=== PATIENT | female | born 1995 | race Caucasian/White ===

== ENCOUNTER 2024-06-10 17:13 | Emergency (ER) | payer OTHER, SELFPAY ==
[2024-06-10 17:26] VITALS: BP 113/60; BMI 18.6
[2024-06-10] MEDS: NSS 1000 IV (17:30)
[2024-06-10 17:40] LABS: % Basophils 0.1 % (0-2); % Immature Granulocytes 0.4 % (0-0.5); % Lymphocytes 7.5 % (20.5-51.1); % Monocytes 4.1 % (1.7-9.3); % Neutrophils 87.9 % (42.2-75.2); Absolute Immature Granulocytes 0.1 10^3/uL (0-0.05); Absolute Lymphocytes 1.1 10^3/uL (1.2-3.4); Absolute Monocytes 0.6 10^3/uL (0.1-0.6); Absolute Neutrophils 13.4 10^3/uL (1.4-6.5); Hemoglobin 15.7 g/dL (12.0-16.0); Mean Corp Hgb Conc. 36.5 g/dL (33.0-37.0); Mean Corpuscular Hgb 30.7 pg (27.0-31.0); Mean Platelet Volume 10.1 fL (7.4-10.4); Nucleated Red Blood Cells % 0 %; Platelet Count 325 10^3/uL (130-400); Red Blood Cell Count 5.12 10^6/uL (4.20-5.40); Red Cell Dist. Width 11.7 % (11.5-14.5); White Blood Cell Count 15.3 10^3/uL (4.8-10.8)
[2024-06-10] MEDS: ATIVAN 1 MG IV ×2 (17:48→18:58)
[2024-06-10] MEDS: ZOFRAN 4 MG IV (17:49)
[2024-06-10 18:00] VITALS: BP 104/65
[2024-06-10 18:03] LABS: Alcohol None Detected; Blood Urea Nitrogen 29 mg/dl (7-17); Calcium 10.3 mg/dl (8.4-10.2); Carbon Dioxide 29 mmol/L (22-30); Chloride 97 mmol/L (98-107); Estimated Creatinine Clearance 77 ml/min; Glucose 138 mg/dl (70-99); Sodium 142 mmol/L (135-145); eGFR > 60.00
--- NOTE | 2024-06-10 18:38 | ED.GENMED ---
History of Present Illness
General
Chief Complaint: Withdrawal Symptoms
Time Seen by Provider: 06/10/24 17:16
History of Present Illness
History of Present Illness:
28-year-old female presents to the emergency department for evaluation of syncopal event that occurred while being interviewed at [facility]. She arrived 2 days ago and was being evaluated in the [facility] when she had
multiple reported syncopal events. Patient admits to frequent outpatient meth, fentanyl, cocaine, and methadone use, last fentanyl use was yesterday and last methadone use was 2 days ago. She reports nausea vomiting and fatigue
Review of Systems
Review of Systems
Allergies reviewed?: Yes
All Other Systems: ROS reviewed and negative except as documented in HPI and ROS
Phy Exam
Physical Exam
Physical Exam:
GEN: Ill-appearing, disheveled
HEENT: Oral mucosa moist, no scleral icterus
Cardiac: Regular rateAnd rhythm, no murmur
Lung: No respiratory distress, no tachypnea
MSK: No gross deformity or injuries
Skin: Good color, no pallor or jaundice, no rashes
Neuro: AO x3, moves all extremities freely
Psych: Calm, cooperative
Course
Orders/Labs/Results
Orders:
Orders
06/10/24 17:24
EKG [Electrocardiogram (*1)] Urgent
Reason for Study: QTc Monitoring
EKG- Treatment ONCE
Test Result ONCE
06/10/24 17:25
0.9% Sodium Chloride 1000 ml [Nss] 1,000 ml IV BOLUS
Lorazepam [Ativan] 1 mg IV NOW STA
Ondansetron Injectable [Zofran] 4 mg IV NOW STA
06/10/24 17:28
Alcohol Urgent
Basic Metabolic Panel Urgent
Complete Blood Count/With Diff Urgent
06/10/24 18:37
HCG, Serum Qualitative Screen Routine
Potassium Routine
06/10/24 18:47
Clonidine [Catapres] 0.1 mg PO NOW STA
Lorazepam [Ativan] 1 mg IV NOW STA
Abnormal Lab Results
06/10/24
17:28
WBC 15.3 H 10^3/uL
(4.8-10.8)
Abs Immat Gran (auto) 0.1 H 10^3/uL
(0-0.05)
Absolute Neuts (auto) 13.4 H 10^3/uL
(1.4-6.5)
Absolute Lymphs (auto) 1.1 L 10^3/uL
(1.2-3.4)
Neutrophils % 87.9 H %
(42.2-75.2)
Lymphocytes % 7.5 L %
(20.5-51.1)
Chloride 97 L mmol/L
(98-107)
BUN 29 H mg/dl
(7-17)
Glucose 138 H mg/dl
(70-99)
Calcium 10.3 H mg/dl
(8.4-10.2)
06/10/24 17:28
06/10/24 18:37
Vital Signs
Initial and Last Documented VS:
Initial Vital Signs
Temp Pulse Resp BP Pulse Ox
98.8 F 64 15 113/60 99
06/10/24 17:26 06/10/24 17:26 06/10/24 17:26 06/10/24 17:26 06/10/24 17:26
Last Documented Vital Signs
Temp Pulse Resp BP Pulse Ox
98.8 F 118 21 107/56 100
06/10/24 17:26 06/10/24 19:45 06/10/24 19:45 06/10/24 19:00 06/10/24 19:15
MDM/Problems Addressed
MDM/Problems Addressed:
Patient with clinical symptoms of opiate withdrawal. Her out patient use of methadone and fentanyl is too recent to initiate buprenorphine. Patient treated with benzodiazepines and clonidine with modest improvement. Will be discharged back to
medical care at [facility]
*Critical Care Note
Total Time (30-74mins, 75-104mins- exclusive of procedures): Not Applicable
ED Attending Note
-
Portions of this chart may have been created with voice recognition software.� Occasional wrong word or��sound alike� substitutions may have occurred due to the inherent limitations of voice recognition software.
Discharge Plan
Departure
Patient Disposition: Home (Routine Discharge)
Date of Disposition: 06/10/24
Time of Disposition: 19:49
Patient with high blood pressure during this ER visit?: No
Discharge Problem:
Opiate withdrawal
Instructions: Polysubstance Use Disorder (DC)
Referrals:
[facility],Facility [Family Provider] -
Activity Restrictions/Additional Instructions:
Antonette could be considered for buprenorphine induction tomorrow, unfortunately due to methadone use <48 hours from ED visit, not suitable to initiate in ED
Interventions
Interventions:
*Risk Screen - Suicide Last Done: 06/10/24 17:18
*General Assessment Last Done: 06/10/24 17:18
*Neglect/Abuse Screening Last Done: 06/10/24 17:18
ED- Fall Risk Assessment Last Done: 06/10/24 18:31
*ED COVID-19 Vaccine History Last Done: 06/10/24 17:18
*Nursing Disposition Last Done: 06/10/24 20:36
ED- Neurological Assessment Last Done: 06/10/24 18:31
ED-Psychological Assessment Last Done: 06/10/24 18:31
Discharge Date and Time
Discharge Date/Time: 06/10/24 20:37
Print Language: GREEK
[2024-06-10] MEDS: CATAPRES 0.1 MG PO (18:58)
[2024-06-10 19:00] VITALS: BP 107/56
[2024-06-10 19:13] LABS: HCG, Serum Qualitative Screen Negative
[2024-06-10 19:14] LABS: Potassium 4.4 mmol/L (3.5-5.1)
== END 2024-06-10 20:37 | disposition home or self-care (01) ==
LOC: EMR 17:13
PROVIDERS: Physician Assistant; EMERGENCY PHYSICIAN Emergency Medicine
DX: R55 Syncope and collapse (principal); F11.23 Opioid dependence with withdrawal; R53.83 Other fatigue; R11.2 Nausea with vomiting, unspecified; Z88.8 Allergy status to other drugs, medicaments and biological substances
CPT/HCPCS: 99284; 96374; 96375; 96361; 96376; 80048; 82077; 84132; 84703; 85025; 93005

== ENCOUNTER 2024-06-12 10:33 | Emergency (ER) | payer OTHER, SELFPAY ==
[2024-06-12 10:41] VITALS: BP 108/70
[2024-06-12] MEDS: NSS 1000 IV (10:56)
[2024-06-12 10:58] VITALS: BP 114/79
[2024-06-12 11:00] VITALS: BP 117/71
[2024-06-12 11:06] LABS: % Basophils 0.4 % (0-2); % Eosinophils 0.1 % (0-6); % Immature Granulocytes 1.2 % (0-0.5); % Lymphocytes 16.9 % (20.5-51.1); % Monocytes 4.4 % (1.7-9.3); Absolute Basophils 0.1 10^3/uL (0-0.2); Absolute Immature Granulocytes 0.2 10^3/uL (0-0.05); Absolute Lymphocytes 2.1 10^3/uL (1.2-3.4); Absolute Monocytes 0.5 10^3/uL (0.1-0.6); Absolute Neutrophils 9.4 10^3/uL (1.4-6.5); Hematocrit 44.7 % (37.0-47.0); Hemoglobin 16.3 g/dL (12.0-16.0); Mean Corp Hgb Conc. 36.5 g/dL (33.0-37.0); Mean Corpuscular Hgb 30.1 pg (27.0-31.0); Mean Corpuscular Volume 82.6 fL (81.0-99.0); Mean Platelet Volume 10.3 fL (7.4-10.4); Nucleated Red Blood Cells % 0 %; Platelet Count 308 10^3/uL (130-400); Red Blood Cell Count 5.41 10^6/uL (4.20-5.40); Red Cell Dist. Width 11.5 % (11.5-14.5); White Blood Cell Count 12.2 10^3/uL (4.8-10.8)
[2024-06-12 11:16] LABS: HCG, Serum Qualitative Screen Negative
[2024-06-12 11:18] LABS: ALT (SGPT) 36 U/L (0-35); AST (SGOT) 37 U/L (14-36); Albumin 5.2 g/dl (3.5-5.0); Alkaline Phosphatase 108 U/L (38-126); Blood Urea Nitrogen 21 mg/dl (7-17); Calcium 10.1 mg/dl (8.4-10.2); Carbon Dioxide 24 mmol/L (22-30); Chloride 102 mmol/L (98-107); Glucose 108 mg/dl (70-99); Potassium 4.1 mmol/L (3.5-5.1); Sodium 143 mmol/L (135-145); Total Bilirubin 1.2 mg/dl (0.2-1.3); eGFR > 60.00
--- NOTE | 2024-06-12 11:23 | ED.GENMED ---
History of Present Illness
General
Chief Complaint: Weakness
Source: patient, ambulance crew and police
Exam Limitations: none
Time Seen by Provider: 06/12/24 10:35
Nursing documentation reviewed up to this point in time: agreed with
History of Present Illness
History of Present Illness:
28-year-old female past medical history of polysubstance abuse, asthma presenting to the emergency department today with concerns of ongoing lethargy syncopal episodes. She was seen here 2 days ago after syncopal episode. She had a normal workup
and was sent back to the senior care. Today she was reassessed having ongoing lethargy and seem to have again a syncopal episode she was caught before hitting the ground did not sustain any trauma. Staff the present deny any sick syncopal events that
resulted in trauma as well. She does not take any daily meds. She is not currently on Suboxone or buprenorphine. Last ingestion of any illicit drugs was 4 days ago.
Review of Systems
Review of Systems
Allergies reviewed?: Yes
All Other Systems: ROS reviewed and negative except as documented in HPI and ROS
Phy Exam
Physical Exam
Physical Exam:
GENERAL: Alert , in no apparent distress
EYE: pupils equal and reactive
NECK: Supple, no significant adenopathy.
ENT: o/p clr, mmm.
CARDIAC: Regular rate and rhythm .
LUNGS: Clear breath sounds bilaterally, no acute respiratory distress, no wheezes/rales/rhonchi
ABDOMEN: Soft, without focal tenderness, no r/g, no cvat
NEUROLOGICAL: Alert and oriented, no focal neuro deficits
SKIN: Warm and dry, skin intact.
MUSCULOSKELETAL: No edema, well perfused.
PSYCH: Normal. Answering all questions and responding to all questioning appropriately. Occasionally falling asleep during exam. easily arousable
Course
Orders/Labs/Results
Orders:
Orders
06/12/24 10:37
EKG [Electrocardiogram (*1)] Urgent
Reason for Study: Syncope
06/12/24 10:38
EKG- Treatment ONCE
0.9% Sodium Chloride 1000 ml [Nss] 1,000 ml IV BOLUS
Test Result ONCE
06/12/24 10:46
Beta Hcg Serum Qualitative Screen [HCG, Serum Qualitative Screen] Urgent
CBC/With Diff [Complete Blood Count/With Diff] Urgent
CMP [Comprehensive Metabolic Panel] Urgent
TSH Reflex To Free T4 Urgent
Comment: ADD
06/12/24 10:47
Add On- LAB Urgent
Tests Added?: tsh free t4
06/12/24 10:58
Urinalysis Reflex To Culture Urgent
Date Specimen was Collected: 06/12/24
Time Specimen was Collected: 10:56
06/12/24 11:24
CT Head W/o Iv Contrast Urgent
Comment:
Reason For Exam: AMS
06/12/24 13:16
Ketorolac [Toradol] 15 mg .ROUTE .STK-MED ONE
Ondansetron Injectable [Zofran] 4 mg .ROUTE .STK-MED ONE
06/12/24 13:18
Ondansetron Injectable [Zofran] 4 mg IV NOW STA
Ondansetron Injectable [Zofran] 4 mg IV NOW STA
06/12/24 13:19
Ketorolac [Toradol] 15 mg IV NOW STA
Abnormal Lab Results
06/12/24
10:46
WBC 12.2 H 10^3/uL
(4.8-10.8)
RBC 5.41 H 10^6/uL
(4.20-5.40)
Hgb 16.3 H g/dL
(12.0-16.0)
Abs Immat Gran (auto) 0.2 H 10^3/uL
(0-0.05)
Absolute Neuts (auto) 9.4 H 10^3/uL
(1.4-6.5)
Immature Gran % 1.2 H %
(0-0.5)
Neutrophils % 77.0 H %
(42.2-75.2)
Lymphocytes % 16.9 L %
(20.5-51.1)
BUN 21 H mg/dl
(7-17)
Glucose 108 H mg/dl
(70-99)
AST 37 H U/L
(14-36)
ALT 36 H U/L
(0-35)
Albumin 5.2 H g/dl
(3.5-5.0)
06/12/24 10:46
06/12/24 10:46
Vital Signs
Initial and Last Documented VS:
Initial Vital Signs
Temp Pulse Resp BP Pulse Ox
98.8 F 46 16 108/70 99
06/12/24 10:41 06/12/24 10:41 06/12/24 10:41 06/12/24 10:41 06/12/24 10:41
Last Documented Vital Signs
Temp Pulse Resp BP Pulse Ox
98.8 F 43 22 102/52 99
06/12/24 10:41 06/12/24 13:45 06/12/24 13:45 06/12/24 13:00 06/12/24 13:00
MDM/Problems Addressed
MDM/Problems Addressed:
28-year-old female presenting to the emergency department today with concerns of lethargy at the senior care. Withdrawing from multiple stimulants as well as fentanyl intermittently. Here vital signs are normal heart rate is slightly low in the 50s but
no heart blocks on EKG. Labs unremarkable. Patient generally in no distress able answer questions follow commands. Resting comfortably 4 hours here. No evidence of emergent pathology stable for outpatient management discharge
*Critical Care Note
Total Time (30-74mins, 75-104mins- exclusive of procedures): Not Applicable
ED Attending Note
-
Portions of this chart may have been created with voice recognition software.� Occasional wrong word or��sound alike� substitutions may have occurred due to the inherent limitations of voice recognition software.
Discharge Plan
Departure
Patient Disposition: Snf
Date of Disposition: 06/12/24
Time of Disposition: 14:09
Patient with high blood pressure during this ER visit?: No
Condition: Good
Covid-19: Not Applicable
Discharge Problem:
Generalized weakness, Fatigue
Instructions: Generalized Weakness (DC)
Referrals:
[facility],Facility [Family Provider] -
Activity Restrictions/Additional Instructions:
You came to the emergency department today after you had progressive weakness generalized fatigue. Here your workup was reassuring without immediate emergent medical issues. Please follow-up closely with medical at the present for further
management. Return for any worsening, new or concerning symptoms.
Interventions
Interventions:
*Risk Screen - Suicide Last Done: 06/12/24 10:44
*General Assessment Last Done: 06/12/24 11:06
*Neglect/Abuse Screening Last Done: 06/12/24 10:44
ED- Fall Risk Assessment Last Done: 06/12/24 11:09
*ED COVID-19 Vaccine History Last Done: 06/12/24 11:06
ED- Cardiac Assessment Last Done: 06/12/24 11:06
ED- Neurological Assessment Last Done: 06/12/24 11:06
ED- Pulmonary Assessment Last Done: 06/12/24 11:06
Discharge Date and Time
Print Language: KHMER
[2024-06-12 11:54] LABS: Urine Albumin Negative (Neg - Trace); Urine Bilirubin Negative (Negative); Urine Character Clear (Clear); Urine Color Yellow; Urine Glucose Negative (Negative); Urine Ketone Negative (Negative); Urine Leukocyte Negative (Negative); Urine Nitrite Negative (Negative); Urine Occult Blood Negative (Negative); Urine Urobilinogen Negative (Neg - 1+)
[2024-06-12 12:14] VITALS: BP 120/78
[2024-06-12 13:00] VITALS: BP 102/52
[2024-06-12] MEDS: ZOFRAN 4 MG IV (13:19)
[2024-06-12] MEDS: TORADOL 15 MG IV (13:19)
[2024-06-12 14:00] VITALS: BP 111/64
== END 2024-06-12 14:51 ==
LOC: EMR 10:33
PROVIDERS: Physician Assistant; EMERGENCY PHYSICIAN Emergency Medicine
DX: R53.1 Weakness (principal); R53.83 Other fatigue; J45.909 Unspecified asthma, uncomplicated
CPT/HCPCS: 99285; 96374; 96375; 96361; 70450; 80053; 81003; 84443; 84703; 85025; 93005